=== PATIENT | female | born 1970 | race Caucasian/White ===

== ENCOUNTER 2018-10-27 13:40 | Inpatient (IN) | payer MEDICARE ==
[~2018-10-27] VITALS: Ht 175.3 cm; Wt 144.2 kg
--- NOTE | ~2018-10-27 | MORECARE ---
CASE MANAGEMENT DISCHARGE SUMMARY PATIENT: NILS NICHOLS UNIT: [id number] ADM DATE: 10/27/18 AGE: 48 : 74 SEX: F ROOM/BED: D.1206 AUTHOR: ELSYDOC PHYSICIAN: REFERRING PHYSICIAN: KELTON CISNEROS MD DATE OF SERVICE: 10/27/18 Discharge Plan Patient Name: NILS NICHOLS Facility: [facility] : 1970 Planned Disposition: Home Anticipated Discharge Date: Discharge Date: Expected LOS: Initial Reviewer: [email or web address] Initial Review Date: 10/27/2018 Generated: 10/27/18 10:14 pm Comments DCP- Discharge Planning Updated by [email or web address]: Aileen Wilsl on 10/27/18 8:[address] Patient Name: NILS NICHOLS Admission Status: Elective Accout number: [id number] Admission Date: 10-27-2018 : 1970 Admission Diagnosis: Attending: KELTON CISNEROS Current LOS: 1 Anticipated DC Date: Planned Disposition: Home Primary Insurance: MEDICARE A & B Discharge Planning Comments: CM met with patient and spouse at bedside after obtaining verbal consent. Patient states she plans on returning home after discharge with her . Patient denies any discharge needs at this time. CM will continue to follow and assist as needed for discharge planning / needs. Ground Host/Hostess: Aileen Wills DCPIA - Discharge Planning Initial Assessment Updated by [email or web address]: Aileen Wills on 10/27/18 9:12 pm * Is the patient Alert and Oriented? Yes * How many steps to enter\exit or inside your home? * PCP Yaa Hinson * [facility] * Preadmission Environment Home with Family * ADLs Independent * Equipment Cane * List name and contact numbers for known caregivers / representatives who currently or will assist patient after discharge: Johnny Nichols [phone] * Verbal permission to speak to the caregivers and representatives has been obtained from the patient. Yes * Community resources currently utilized None * Additional services required to return to the preadmission environment? Yes * Can the patient safely return to the preadmission environment? No * Has this patient been hospitalized within the prior 30 days at any hospital? Yes Patient Name: NILS NICHOLS Page [id number] at 2113 All edits/amendments must be made on the electronic document DICTATION DATE: 10/27/182113 HEADER SETUP OPERATOR: AIDAN 10/27/182113 RPT#: [id number] DC DATE: STATUS: ADM IN [facility] [address] [place] [address] END OF REPORT
--- NOTE | ~2018-10-27 | MORECARE ---
CASE MANAGEMENT DISCHARGE SUMMARY PATIENT: NILS NICHOLS UNIT: [id number] ADM DATE: 10/27/18 AGE: 48 : 74 SEX: F ROOM/BED: D.1206 AUTHOR: ELSYDOC PHYSICIAN: REFERRING PHYSICIAN: KELTON CISNEROS MD DATE OF SERVICE: 10/28/18 Discharge Plan Patient Name: NILS NICHOLS Facility: [facility]:[place] : 1970 Planned Disposition: Home Anticipated Discharge Date: Discharge Date: 10/28/2018 Expected LOS: Initial Reviewer: [email or web address] Initial Review Date: 10/27/2018 Generated: 10/28/18 10:11 pm Comments DCP- Discharge Planning Updated by [email or web address]: Aileen Wills on 10/27/18 8:[address] Patient Name: NILS NICHOLS Admission Status: Elective Accout number: [id number] Admission Date: 10-27-2018 : 1970 Admission Diagnosis: Attending: KELTON CISNEROS Current LOS: 1 Anticipated DC Date: Planned Disposition: Home Primary Insurance: MEDICARE A & B Discharge Planning Comments: CM met with patient and spouse at bedside after obtaining verbal consent. Patient states she plans on returning home after discharge with her . Patient denies any discharge needs at this time. CM will continue to follow and assist as needed for discharge planning / needs. Water Quality Analyst: Aileen Wills DCPIA - Discharge Planning Initial Assessment Updated by [email or web address]: Aileen Wills on 10/27/18 9:12 pm * Is the patient Alert and Oriented? Yes * How many steps to enter\exit or inside your home? * PCP Yaa Hinson * [facility] * Preadmission Environment Home with Family * ADLs Independent * Equipment Cane * List name and contact numbers for known caregivers / representatives who currently or will assist patient after discharge: Johnny Nichols [phone] * Verbal permission to speak to the caregivers and representatives has been obtained from the patient. Yes * Community resources currently utilized None * Additional services required to return to the preadmission environment? Yes * Can the patient safely return to the preadmission environment? No * Has this patient been hospitalized within the prior 30 days at any hospital? Yes Last DP export: 10/27/18 8:14 Patient Name: NILS NICHOLS Page 46405 at 2110 All edits/amendments must be made on the electronic document DICTATION DATE: 10/28/182110 SEWING MACHINE ADJUSTER: AIDAN 10/28/182110 RPT#: [id number] DC DATE:10/28/18 STATUS: DIS IN [facility] [address] [place] [address] END OF REPORT
[2018-10-27 15:19] VITALS: BP 108/61; BMI 47.0
[2018-10-27 16:00] LABS: HEMATOCRIT 40.5 % (36.0-48.0); HEMOGLOBIN 14.6 g/dL (12-16); MCH 31.5 pg (26.0-34.0); MCV 87.3 fL (80.0-100.0); MEAN PLATELET VOLUME 10.8 fL (7.4-10.4); PLATELET COUNT 358 10x3/uL (130-400); RBC 4.64 10x6/uL (4.00-5.40); RDW 14.1 % (11.5-14.5); WBC 23.6 10x3/uL (4.8-10.8)
[2018-10-27 16:06] LABS: ALBUMIN 3.2 g/dL (3.4-5.0); ALKALINE PHOSPHATASE 93 U/L (46-116); ALT (SGPT) 39 U/L (10-68); BILIRUBIN - TOTAL 0.61 mg/dL (0.2-1.3); CALC OSMOLALITY 273 mosm/kg (275-300); CALCIUM 9.2 mg/dL (8.5-10.1); CARBON DIOXIDE 27.5 mmol/L (21.0-32.0); CHLORIDE - SERUM 96 mmol/L (98-107); CREATININE - SERUM 0.8 mg/dL (0.6-1.3); GLUCOSE 145 mg/dL (74-106); POTASSIUM - SERUM 3.8 mmol/L (3.5-5.1); PROTEIN - SERUM 7.6 g/dL (6.4-8.2); SODIUM 135 mmol/L (136-145); UREA NITROGEN 15 mg/dL (7-18); eGFR NON AFRICAN AMERICAN 82 mL/min (90-120)
[2018-10-27 17:11] LABS: EOSINOPHILS 1 % (0-7); LYMPHOCYTES 15 % (15-50); MONOCYTES 3 % (2-11); NEUTROPHILS 81 % (40-80); PLATELET ESTIMATE NORMAL
[2018-10-27 17:37] VITALS: BP 108/61
[2018-10-27 19:00] VITALS: BP 125/63
[2018-10-27 23:46] VITALS: BP 123/62
[2018-10-28 04:13] VITALS: BP 114/52
[2018-10-28 06:59] LABS: BASOPHILS 0.4 % (0-2); EOSINOPHILS 1.4 % (0-7); HEMATOCRIT 39.2 % (36.0-48.0); HEMOGLOBIN 13.8 g/dL (12-16); IMMATURE GRANULOCYTES 0.9 % (0-5); LYMPHOCYTES 17.1 % (15-50); MCH 31.1 pg (26.0-34.0); MCHC 35.2 g/dL (31.0-37.0); MCV 88.3 fL (80.0-100.0); MEAN PLATELET VOLUME 10.7 fL (7.4-10.4); MONOCYTES 6.2 % (2-11); PLATELET COUNT 341 10x3/uL (130-400); RBC 4.44 10x6/uL (4.00-5.40); RDW 14.3 % (11.5-14.5)
[2018-10-28 07:16] LABS: ALBUMIN 3.2 g/dL (3.4-5.0); ALKALINE PHOSPHATASE 89 U/L (46-116); ALT (SGPT) 43 U/L (10-68); BILIRUBIN - TOTAL 0.75 mg/dL (0.2-1.3); CALC OSMOLALITY 281 mosm/kg (275-300); CALCIUM 8.5 mg/dL (8.5-10.1); CARBON DIOXIDE 26.7 mmol/L (21.0-32.0); CHLORIDE - SERUM 101 mmol/L (98-107); CREATININE - SERUM 0.7 mg/dL (0.6-1.3); GLUCOSE 179 mg/dL (74-106); POTASSIUM - SERUM 4.5 mmol/L (3.5-5.1); PROTEIN - SERUM 6.9 g/dL (6.4-8.2); SODIUM 139 mmol/L (136-145); UREA NITROGEN 13 mg/dL (7-18); eGFR NON AFRICAN AMERICAN > 90 mL/min (90-120)
[2018-10-28 07:34] VITALS: BP 109/55
[2018-10-28 11:17] VITALS: Ht 175.3 cm; Wt 144.2 kg
[2018-10-28 11:18] VITALS: BP 115/61
[2018-10-28] MEDS ORDERED: LEVAQUIN750 MG PO (17:12)
[2018-10-28] MEDS ORDERED: PROBIOTIC1 EAC1 PO (17:13)
== END 2018-10-28 18:40 | disposition home or self-care (01) | DRG 392 ==
LOC: D.M3 13:40
PROVIDERS: Emergency Medicine
DX: R10.9 Unspecified abdominal pain (principal); D72.829 Elevated white blood cell count, unspecified; E11.9 Type 2 diabetes mellitus without complications; J45.909 Unspecified asthma, uncomplicated; G89.29 Other chronic pain; M54.9 Dorsalgia, unspecified; K21.9 Gastro-esophageal reflux disease without esophagitis; F43.10 Post-traumatic stress disorder, unspecified

== ENCOUNTER → 2018-12-21 10:12 | Outpatient (CLI) | payer MEDICARE ==
[2018-10-28 11:17] VITALS: BMI 46.9
[~2018-12-21 10:12] MED LIST: LEVAQUIN750 MG PO; PROBIOTIC1 EAC1 PO
== END | disposition home or self-care (01) ==
LOC: D.MRI 10:12
DX: M25.561 Pain in right knee (principal)

== ENCOUNTER 2019-01-14 07:09 | Outpatient (CLI) | payer MEDICARE ==
[~2019-01-14] VITALS: Ht 175.3 cm; Wt 141.1 kg
[2019-01-14 07:43] LABS: BASOPHILS 0.3 % (0-2); EOSINOPHILS 1.9 % (0-7); HEMATOCRIT 40.5 % (36.0-48.0); IMMATURE GRANULOCYTES 0.8 % (0-5); LYMPHOCYTES 25.8 % (15-50); MCH 29.7 pg (26.0-34.0); MCHC 34.6 g/dL (31.0-37.0); MEAN PLATELET VOLUME 10.1 fL (7.4-10.4); MONOCYTES 6.4 % (2-11); NEUTROPHILS 64.8 % (40-80); PLATELET COUNT 339 10x3/uL (130-400); RBC 4.71 10x6/uL (4.00-5.40); RDW 15.5 % (11.5-14.5); WBC 10.5 10x3/uL (4.8-10.8)
[2019-01-14 07:53] LABS: APTT 29.5 SECONDS (22.8-39.4); INR 1.11 (0.85-1.17); PROTIME 13.8 SECONDS (11.6-15.0)
[2019-01-14 07:55] LABS: ANION GAP 13.7 mmol/L (8-16); CREATININE - SERUM 0.9 mg/dL (0.6-1.3); POTASSIUM - SERUM 4.7 mmol/L (3.5-5.1)
[2019-01-14] MEDS ORDERED: MINIPRESS 5 MG C5 MG PO (08:19)
[2019-01-14] MEDS ORDERED: CYMBALTA30 MG PO (08:20)
[2019-01-14] MEDS ORDERED: GEODON60 MG PO (08:21)
[2019-01-14] MEDS ORDERED: GLUCOPHAGE500 MG PO (08:21)
[2019-01-14] MEDS ORDERED: LISINOPRIL-HCT1 EAC4 PO (08:21)
[2019-01-14] MEDS ORDERED: NEURONTIN600 MG PO (08:22)
[2019-01-14] MEDS ORDERED: ADVAIR HFA 230-12 GM INH (08:22)
[2019-01-14] MEDS ORDERED: CARDURA1 MG PO (08:23)
[2019-01-14] MEDS ORDERED: LANTUS INSULIN10 ML SC (08:24)
[2019-01-14] MEDS ORDERED: CELEBREX50 MG PO (08:24)
[2019-01-14] MEDS ORDERED: INVOKANA300 MG PO (08:24)
[2019-01-14] MEDS ORDERED: OMEPRAZOLE40 MG PO (08:25)
[2019-01-14] MEDS ORDERED: LOPRESSOR25 MG PO (08:26)
[2019-01-14] MEDS ORDERED: CRESTOR5 MG PO (08:26)
[2019-01-14] MEDS ORDERED: NOVOLIN 70/30 110 ML SQ (08:27)
[2019-01-14 08:29] VITALS: BP 109/66; Ht 175.3 cm; Wt 141.1 kg
--- NOTE | 2019-01-14 12:03 | NUR ---
REC'D FROM SPECIALS. FAMILY AT BEDSIDE. DRESSING CDI TO BX SITE. FL TRAY BROUGHT TO PT.
--- NOTE | 2019-01-14 12:35 | NUR ---
TOLERATED DIET. CALLED Bulmaro BEAN RN REGARDING DC ORDERS. DRESSING CDI. FAMILY AT BEDSIDE.
--- NOTE | 2019-01-14 13:30 | NUR ---
IV DC'D WITH CATHETER INTACT.
--- NOTE | 2019-01-14 13:45 | NUR ---
WRITTEN AND VERBAL DC INST. GIVEN TO PT. VERBALIZED UNDERSTANDING.
--- NOTE | 2019-01-14 14:00 | NUR ---
DC'D HOME WITH FAMILY VIA PRIVATE VEHICLE. TAKEN TO VEHICLE VIA WC. STABLE AT TIME OF DC.
== END 2019-01-14 14:00 | disposition home or self-care (01) ==
LOC: D.SP 07:09 → D.CT 11:00 → D.SP 14:00
PROVIDERS: Specialist
DX: D64.9 Anemia, unspecified (principal); Z01.812 Encounter for preprocedural laboratory examination

== ENCOUNTER 2019-02-04 05:00 | Day surgery (SDC) | payer MEDICARE ==
[2019-02-03 08:42] LABS: HEMATOCRIT 39.6 % (36.0-48.0); HEMOGLOBIN 13.8 g/dL (12-16); MCH 29.9 pg (26.0-34.0); MCHC 34.8 g/dL (31.0-37.0); MCV 85.7 fL (80.0-100.0); MEAN PLATELET VOLUME 10.1 fL (7.4-10.4); RBC 4.62 10x6/uL (4.00-5.40); RDW 15.1 % (11.5-14.5); WBC 11.1 10x3/uL (4.8-10.8)
[2019-02-03 08:47] LABS: ANION GAP 15.8 mmol/L (8-16); CALCIUM 8.9 mg/dL (8.5-10.1); CARBON DIOXIDE 25.7 mmol/L (21.0-32.0); CREATININE - SERUM 0.9 mg/dL (0.6-1.3); POTASSIUM - SERUM 4.5 mmol/L (3.5-5.1)
[~2019-02-04] VITALS: Ht 403.9 cm; Wt 145.1 kg
[~2019-02-04 05:00] MED LIST changes: +ADVAIR HFA 230-12 GM INH; +CARDURA1 MG PO; +CELEBREX50 MG PO; +CRESTOR5 MG PO; +CYMBALTA30 MG PO; +GEODON60 MG PO; +GLUCOPHAGE500 MG PO; +INVOKANA300 MG PO; +LANTUS INSULIN10 ML SC; +LISINOPRIL-HCT1 EAC4 PO; +LOPRESSOR25 MG PO; +MINIPRESS 5 MG C5 MG PO; +NEURONTIN600 MG PO; +NOVOLIN 70/30 110 ML SQ; +OMEPRAZOLE40 MG PO; +[UNRECOGNIZED DRUG - OTHER]
[2019-02-04 06:05] VITALS: BP 117/74; Ht 403.9 cm; Wt 145.1 kg
[2019-02-04] MEDS ORDERED: PERCOCET 7.5/321 TAB PO (09:21)
--- NOTE | 2019-02-04 11:24 | NUR ---
1123 IV DC'D. NO BLEEDING AT SITE. BANDAID APPLIED.
--- NOTE | 2019-02-04 16:32 | OP ---
PATIENT NAME: NILS NICHOLS MEDICAL RECORD: [id number] :[birth year] LOCATION:[facility] AD[facility]ION DATE: SURGEON: LEE WEEKS DO DATE OF OPERATION: 02/04/2019 PROCEDURE PERFORMED: Left knee arthroscopy, partial medial and partial lateral meniscectomy. PREOPERATIVE DIAGNOSIS: Left knee medial meniscal tear. 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 INDICATIONS: Ms. Nichols is a 48-year-old female who has had popping, catching, and locking of her knee for some time. She had an MRI done, which demonstrated a medial meniscal tear and mild tricompartmental arthritis. This has been going on for a long time and she wanted something done. She agreed to a knee scope. I informed her that I may not be able to trim out the meniscus, but I will not be able to do anything about the arthritis. She is aware of that and that this may not get better. We will help with the meniscal symptoms of popping, catching, but will not help with the pain as much. She is aware of that and signed the consent, is aware of the risks of blood clots, bleeding, damage to nerves and vessels, need for further surgery. SURGEON: Lee Weeks DO DESCRIPTION OF PROCEDURE: The patient was taken to the operative suite, laid in supine position. Left lower extremity was prepped and draped in sterile fashion. The patient was given 2 grams of Ancef preoperatively. A timeout was performed and everyone was in agreement with the correct side, site, patient and procedure. The knee was then flexed down and the lateral portal was started with an 11-blade scalpel. Trocar was then entered in the knee up to the suprapatellar pouch. Inspection was done. There were no loose bodies seen there. The patella did not appear to have any chondromalacia. The lateral gutter was then inspected. No loose body was seen in that. Medial gutter was same. The knee was then brought from extension to flexion and the medial femoral condyle was noted to have a large defect approximately a 3 x 4 cm with loose cartilage. A shaver was then brought in after the medial portal was established with 15-blade spinal needle and an 11-blade scalpel. A shaver was brought in and abrasion chondroplasty was done to take off the cartilage. It was loose. There was a small tear in the anterior horn of medial meniscus as well and this was chewed up with the shaver. The probe was then brought in. The posterior horn of the meniscus where the tear was seen on the MRI was seen, but the meniscus was not unstable with the probe. The small tear that was seen at that point was then trimmed out with a biter and then smoothed out with a shaver. The camera was then switched to see the ACL. The probe was used to probe, it was very taut and then the probe was parked in the notch and the knee was [id number]. The lateral compartment was then entered. The chondromalacia of the lateral tibial plateau was noted at grade III. Shaver was brought in to trim that out. Any loose cartilage was removed and then a small tear in the lateral meniscus was seen. It was trimmed out with a shaver. The meniscus was probed and did not appear to be unstable in the lateral meniscus. The knee was then brought into an extension and the suprapatellar pouch was inspected again, nothing was seen in it and the patella seemed to track very OPERATIVE REPORT [id number] NICHOLSNILS well in the trochlea. There was some slight chondromalacia of the trochlea, but nothing severe, grade I. The water was then turned off, suction was turned on. Excess fluid was removed. The portal sites were then closed with 3-0 Monocryl in inverted interrupted fashion. Steri-Strips, Adaptic, 4 x 4's, ABD, Webril, and Alcides wrap was then placed on the knee. A AHSLEY hose stockinette was placed up to the knee. The patient was awakened and taken to recovery in stable condition. BLOOD LOSS: Minimal. COMPLICATIONS: None. TRANSINT:[id number] Voice Confirmation ID: [id number] DOCUMENT ID: [id number] LEE WEEKS DO at 1632 CC: [id number] DICTATION DATE: 02/04/19928 INTERCELL CONNECTOR PLACER: 02/04/19 1007 [facility] 02/04/19 [place] [id number] [place] [address]
== END 2019-02-04 11:30 | disposition home or self-care (01) ==
LOC: D.OPS 05:00 → D.PAN 07:30 → D.OPS 07:30
PROVIDERS: Anesthesiology; ATTEND Orthopaedic Surgery
DX: S83.242A Other tear of medial meniscus, current injury, left knee, initial encounter (principal); S83.282A Other tear of lateral meniscus, current injury, left knee, initial encounter; M94.262 Chondromalacia, left knee; Z01.812 Encounter for preprocedural laboratory examination

== ENCOUNTER → 2019-09-15 08:13 | Outpatient (CLI) | payer MEDICARE ==
[~2019-09-15 08:13] MED LIST changes: +PERCOCET 7.5/321 TAB PO
== END | disposition home or self-care (01) ==
LOC: D.HCCARDIO 08:13
PROVIDERS: ATTEND Internal Medicine Cardiovascular Disease
DX: I20.9 Angina pectoris, unspecified (principal)

== ENCOUNTER 2019-12-20 06:08 | Emergency (ER) | payer MEDICARE ==
[~2019-12-20] VITALS: Ht 175.3 cm; Wt 145.5 kg
[~2019-12-20 06:08] MED LIST changes: -LANTUS INSULIN10 ML SC; +LANTUS SOL100 UNIT/1
[2019-12-20 06:16] VITALS: Ht 175.3 cm; Wt 145.5 kg
[2019-12-20 06:45] LABS: BASOPHILS 0.1 % (0-2); EOSINOPHILS 0.6 % (0-7); HEMATOCRIT 24.6 % (36.0-48.0); IMMATURE GRANULOCYTES 0.4 % (0-5); LYMPHOCYTES 17.6 % (15-50); MCH 21.8 pg (26.0-34.0); MCHC 30.1 g/dL (31.0-37.0); MCV 72.6 fL (80.0-100.0); MEAN PLATELET VOLUME 9.4 fL (7.4-10.4); MONOCYTES 6.7 % (2-11); NEUTROPHILS 74.6 % (40-80); RBC 3.39 10x6/uL (4.00-5.40); RDW 18.2 % (11.5-14.5); WBC 16.2 10x3/uL (4.8-10.8)
[2019-12-20 06:51] LABS: HEMOGLOBIN 7.4 g/dL (12-16); PLATELET COUNT 448 10x3/uL (130-400)
[2019-12-20 07:00] LABS: ANION GAP 17.2 mmol/L (8-16); CALCIUM 8.2 mg/dL (8.5-10.1); CARBON DIOXIDE 24.6 mmol/L (21.0-32.0); POTASSIUM - SERUM 3.8 mmol/L (3.5-5.1)
[2019-12-20 07:02] LABS: HCG SERUM NEGATIVE (NEGATIVE)
[2019-12-20 07:07] LABS: ALBUMIN 3.3 g/dL (3.4-5.0); BILIRUBIN - TOTAL 0.42 mg/dL (0.2-1.3); PROTEIN - SERUM 7.4 g/dL (6.4-8.2)
[2019-12-20 08:35] LABS: APPEARANCE CLEAR (CLEAR); BILIRUBIN NEGATIVE (NEGATIVE); COLOR YELLOW (YELLOW); GLUCOSE NEGATIVE (NEGATIVE); KETONE MODERATE mg/dL (NEGATIVE); NITRITE NEGATIVE (NEGATIVE); PROTEIN NEGATIVE (NEGATIVE); UROBILINOGEN NORMAL (NORMAL)
[2019-12-20 08:41] LABS: RED CELLS - URINE 0-5 /hpf (0-5); WHITE CELLS - URINE 0-5 /hpf (NEGATIVE)
[2019-12-20 08:43] LABS: BACTERIA MODERATE /hpf (NEGATIVE); MUCUS <1+ /lpf (NONE SEEN)
[2019-12-20 11:51] VITALS: BP 137/72
== END 2019-12-20 12:01 | disposition home or self-care (01) ==
LOC: D.ER 06:08
PROVIDERS: Emergency Medicine
DX: N93.9 Abnormal uterine and vaginal bleeding, unspecified (principal); D62 Acute posthemorrhagic anemia; R10.2 Pelvic and perineal pain; E11.9 Type 2 diabetes mellitus without complications; Z79.84 Long term (current) use of oral hypoglycemic drugs; I10 Essential (primary) hypertension; I49.9 Cardiac arrhythmia, unspecified; M54.9 Dorsalgia, unspecified; K21.9 Gastro-esophageal reflux disease without esophagitis

== ENCOUNTER 2021-01-23 05:49 | Day surgery (SDC) | payer MEDICARE, OTHER ==
[~2021-01-23] VITALS: Ht 175.3 cm; Wt 145.1 kg
[~2021-01-23 05:49] MED LIST changes: +APIDRA SOL100 UNIT/1 SQ; +CRESTOR10 MG PO; -CRESTOR5 MG PO; +GLUCOTROL 5 MG T5 MG PO; +HYDROCODON-ACE1 EAC7 PO; +KEFLEX500 MG PO; -LANTUS SOL100 UNIT/1; +LANTUS SOLOSTAR PE; -LOPRESSOR25 MG PO; +METOPROLOL TART25 MG PO; +REQUIP5 MG PO
[2021-01-23 06:18] LABS: BASOPHILS 0.4 % (0-2); EOSINOPHILS 1.7 % (0-7); HEMATOCRIT 41.5 % (36.0-48.0); HEMOGLOBIN 14.2 g/dL (12-16); IMMATURE GRANULOCYTES 0.5 % (0-5); LYMPHOCYTE ABS# 2.67 10x3/uL (1.18-3.74); LYMPHOCYTES 19.2 % (15-50); MCH 29.8 pg (26.0-34.0); MCHC 34.2 g/dL (31.0-37.0); MEAN PLATELET VOLUME 9.8 fL (7.4-10.4); MONOCYTES 5.7 % (2-11); NEUTROPHILS 72.5 % (40-80); PLATELET COUNT 384 10x3/uL (130-400); RBC 4.77 10x6/uL (4.00-5.40); RDW 15.4 % (11.5-14.5); WBC 13.9 10x3/uL (4.8-10.8)
[2021-01-23 06:40] LABS: ALBUMIN 3.4 g/dL (3.4-5.0); ALKALINE PHOSPHATASE 74 U/L (30-120); ALT (SGPT) 35 U/L (10-68); BILIRUBIN - TOTAL 0.61 mg/dL (0.2-1.3); CALC OSMOLALITY 274 mosm/kg (275-300); CALCIUM 9.1 mg/dL (8.5-10.1); CARBON DIOXIDE 30.4 mmol/L (21.0-32.0); CHLORIDE - SERUM 99 mmol/L (98-107); CREATININE - SERUM 0.8 mg/dL (0.6-1.3); GLUCOSE 139 mg/dL (74-106); POTASSIUM - SERUM 4.1 mmol/L (3.5-5.1); PROTEIN - SERUM 7.5 g/dL (6.4-8.2); SODIUM 137 mmol/L (136-145); UREA NITROGEN 10 mg/dL (7-18); eGFR NON AFRICAN AMERICAN 81 mL/min (90-120)
[2021-01-23 07:25] VITALS: Ht 175.3 cm; Wt 145.1 kg
[2021-01-23] MEDS ORDERED: MYSOLINE 50 MG50 MG PO (07:33)
[2021-01-23] MEDS ORDERED: HYDROXYCHLOROQ200 MG PO (07:34)
[2021-01-23] MEDS ORDERED: LEVOXYL75 MCG PO (07:36)
[2021-01-23] MEDS ORDERED: FOLIC ACID1 MG PO (07:37)
[2021-01-23] MEDS ORDERED: VITAMIN D325 MC1 PO (07:41)
--- NOTE | 2021-01-23 09:40 | NUR ---
DISCHARGE INSTRUCTIONS REVIEWED WITH PATIENT AND COPY PROVIDED ALONG WITH ORIGINAL RX FOR PROTONIX. ALSO PROVIDED LIST OF NSAIDS TO AVOID. PT VOICED UNDERSTANDING OF ALL. IV DC'D WITH CATH TIP INTACT. PT UP GETTING DRESSED FOR DISCHARGE.
--- NOTE | 2021-01-23 09:47 | NUR ---
DISCHARGED VIA WC, ACCOMPANIED BY THIS NURSE, TO POV WITH SPOUSE DRIVING. ALL BELONGINGS AND DC PACKET WITH PT. NO C/O VOICED.
--- NOTE | 2021-01-23 20:41 | OP ---
PATIENT NAME: NILS MCCORMICK MEDICAL RECORD: [id number] :74 LOCATION:[facility] ADMISSION DATE: SURGEON: HARMONY COPE MD DATE OF OPERATION: 01/23/2021 PROCEDURE: Upper endoscopy. PREOPERATIVE DIAGNOSES: Abdominal pain, nausea, vomiting. MEDICATION: Propofol per anesthesia. DESCRIPTION OF PROCEDURE: The patient was placed in a comfortable position. The endoscope was advanced through the mouth and advanced to the second part of the duodenum. The entire examined esophagus was normal. In the gastric body was mild erythema consistent with gastritis. Random gastric biopsies were taken. There was also a small antral polyp. This was removed with cold biopsy forceps. The duodenum was normal. Small bowel biopsies were taken. The patient tolerated the procedure well. FINAL DIAGNOSES: Normal esophagus, mild gastritis, gastric polyp. Duodenum normal. PLAN: Check histology results. Advance diet. Return to GI office. Continue proton pump inhibitor, which she is already on and this is on her home medications. TRANSINT:[id number] Voice Confirmation ID: [id number] DOCUMENT ID: [id number] HARMONY COPE MD at 2041 CC: [id number] DICTATION DATE: 01/23/21 09 COMPUTER ENGINEER: 01/23/21 1553 [facility] 01/23/21 [facility] [address] [place] [address]
== END 2021-01-23 09:47 | disposition home or self-care (01) ==
LOC: D.OPS 05:49
PROVIDERS: Anesthesiology; ATTEND Internal Medicine Gastroenterology
DX: R10.9 Unspecified abdominal pain (principal); R11.2 Nausea with vomiting, unspecified; K31.7 Polyp of stomach and duodenum; K29.70 Gastritis, unspecified, without bleeding; R10.817 Generalized abdominal tenderness; K21.9 Gastro-esophageal reflux disease without esophagitis; R63.4 Abnormal weight loss

== ENCOUNTER 2021-02-18 10:03 | Emergency (ER) | payer MEDICARE, OTHER ==
[~2021-02-18] VITALS: Ht 175.3 cm; Wt 145.5 kg
[~2021-02-18 10:03] MED LIST changes: +FOLIC ACID1 MG PO; +HYDROXYCHLOROQ200 MG PO; +LEVOXYL75 MCG PO; +MYSOLINE 50 MG50 MG PO; +VITAMIN D325 MC1 PO
[2021-02-18 10:07] VITALS: Ht 175.3 cm; Wt 145.5 kg
[2021-02-18 10:51] LABS: BASOPHILS 0.5 % (0-2); EOSINOPHILS 1.5 % (0-7); HEMATOCRIT 43.5 % (36.0-48.0); HEMOGLOBIN 15.2 g/dL (12-16); IMMATURE GRANULOCYTES 0.4 % (0-5); LYMPHOCYTE ABS# 3.37 10x3/uL (1.18-3.74); LYMPHOCYTES 24.8 % (15-50); MCH 29.8 pg (26.0-34.0); MCHC 34.9 g/dL (31.0-37.0); MCV 85.3 fL (80.0-100.0); MONOCYTES 7.9 % (2-11); NEUTROPHIL ABS# 8.84 10x3/uL (1.56-6.13); NEUTROPHILS 64.9 % (40-80); PLATELET COUNT 412 10x3/uL (130-400); RDW 15.4 % (11.5-14.5); WBC 13.6 10x3/uL (4.8-10.8)
[2021-02-18 11:03] LABS: ANION GAP 16.9 mmol/L (8-16); CALCIUM 9.1 mg/dL (8.5-10.1); CREATININE - SERUM 0.9 mg/dL (0.6-1.3); POTASSIUM - SERUM 3.9 mmol/L (3.5-5.1)
[2021-02-18 11:09] LABS: ALBUMIN 3.8 g/dL (3.4-5.0); BILIRUBIN - TOTAL 0.83 mg/dL (0.2-1.3); PROTEIN - SERUM 7.9 g/dL (6.4-8.2)
[2021-02-18 13:41] LABS: BILIRUBIN NEGATIVE (NEGATIVE); KETONE NEGATIVE (NEGATIVE); NITRITE NEGATIVE (NEGATIVE); UROBILINOGEN NORMAL mg/dL (< 2); WHITE CELLS - URINE 0-5 HPF (0-4)
[2021-02-18 13:42] LABS: BACTERIA FEW HPF (NONE SEEN); SQUAMOUS EPITHELIAL 0-5 HPF (0-4)
[2021-02-18] MEDS ORDERED: REGLAN5 MG PO (13:49)
[2021-02-18 14:20] VITALS: BP 123/64
== END 2021-02-18 14:20 | disposition home or self-care (01) ==
LOC: D.ER 10:03
PROVIDERS: Family Medicine
DX: R11.2 Nausea with vomiting, unspecified (principal); E11.43 Type 2 diabetes mellitus with diabetic autonomic (poly)neuropathy; K31.84 Gastroparesis; Z79.84 Long term (current) use of oral hypoglycemic drugs; I10 Essential (primary) hypertension; J45.909 Unspecified asthma, uncomplicated; K21.9 Gastro-esophageal reflux disease without esophagitis

== ENCOUNTER 2021-02-25 06:04 | Day surgery (SDC) | payer MEDICARE, OTHER ==
[~2021-02-25] VITALS: Ht 175.3 cm; Wt 149.5 kg
[~2021-02-25 06:04] MED LIST changes: +BASAGLAR K100 UNIT/1 SC; +METHOTREXATE2.5 MG PO; +PROTONIX40 MG PO; +REGLAN5 MG PO
[2021-02-25 06:40] LABS: ALBUMIN 3.9 g/dL (3.4-5.0); ANION GAP 15.4 mmol/L (8-16); BILIRUBIN - TOTAL 0.96 mg/dL (0.2-1.3); CALCIUM 8.8 mg/dL (8.5-10.1); CARBON DIOXIDE 28.1 mmol/L (21.0-32.0); POTASSIUM - SERUM 3.5 mmol/L (3.5-5.1); PROTEIN - SERUM 7.9 g/dL (6.4-8.2)
[2021-02-25] MEDS ORDERED: METHOTREXATE (06:53)
[2021-02-25 07:02] VITALS: BP 142/85; Ht 175.3 cm; Wt 149.5 kg
[2021-02-25 07:11] LABS: BASOPHILS 0.7 % (0-2); EOSINOPHILS 2.4 % (0-7); HEMOGLOBIN 14.3 g/dL (12-16); IMMATURE GRANULOCYTES 0.5 % (0-5); LYMPHOCYTE ABS# 2.79 10x3/uL (1.18-3.74); LYMPHOCYTES 25.5 % (15-50); MCH 29.5 pg (26.0-34.0); MCHC 34.9 g/dL (31.0-37.0); MCV 84.7 fL (80.0-100.0); MEAN PLATELET VOLUME 10.5 fL (7.4-10.4); MONOCYTES 8.1 % (2-11); NEUTROPHIL ABS# 6.87 10x3/uL (1.56-6.13); NEUTROPHILS 62.8 % (40-80); PLATELET COUNT 423 10x3/uL (130-400); RBC 4.84 10x6/uL (4.00-5.40); RDW 14.8 % (11.5-14.5); WBC 10.9 10x3/uL (4.8-10.8)
--- NOTE | 2021-02-25 08:44 | NUR ---
DC INSTRUCTIONS GIVEN TO PT/FAMILY. STATE UNDERSTANDING. DC'D IV CATH FULLY INTACT. WILL DC SHORTLY.
--- NOTE | 2021-02-25 08:57 | NUR ---
PT LEFT UNIT VIA AT 0822
--- NOTE | 2021-02-25 16:37 | OP ---
PATIENT NAME: NILS MCCORMICK MEDICAL RECORD: [id number] :74 LOCATION:[facility] ADMISSION DATE: SURGEON: HARMONY COPE MD DATE OF OPERATION: 02/25/2021 PREOPERATIVE DIAGNOSES: History of polyps, abdominal pain, unintentional weight loss. MEDICATIONS Propofol per anesthesia. DESCRIPTION OF PROCEDURE: The patient was placed in the left lateral position and made comfortable. The colonoscope was inserted through the rectum and advanced to the cecum, identified by the ileocecal valve. The quality of the prep was good. The entire examined mucosa was normal. The patient tolerated the procedure well. There were no immediate complications. FINAL DIAGNOSIS: Normal colonoscopy. PLAN: Advance diet. Return to GI office. Given history of polyps, recommend repeat colonoscopy in 3 to 5 years. TRANSINT:[id number] Voice Confirmation ID: [id number] DOCUMENT ID: [id number] HARMONY COPE MD at 1637 CC: [id number] DICTATION DATE: 02/25/21 08 ASSISTANT BASKETBALL COACH: 02/25/21 1441 [facility] 02/25/21 [facility] [address] [place] [address]
== END 2021-02-25 08:54 | disposition home or self-care (01) ==
LOC: D.OPS 06:04
PROVIDERS: Anesthesiology; ATTEND Internal Medicine Gastroenterology
DX: R10.9 Unspecified abdominal pain (principal); Z86.010 Personal history of colon polyps; R63.4 Abnormal weight loss; R11.2 Nausea with vomiting, unspecified; K21.9 Gastro-esophageal reflux disease without esophagitis

== ENCOUNTER → 2021-04-12 07:30 | Outpatient (CLI) | payer MEDICARE, OTHER ==
[2021-02-25 07:02] VITALS: BMI 48.7
[~2021-04-12 07:30] MED LIST changes: +METHOTREXATE
== END | disposition home or self-care (01) ==
LOC: D.HCCECHO 07:30
PROVIDERS: ATTEND Internal Medicine Cardiovascular Disease
DX: R07.9 Chest pain, unspecified (principal); R00.2 Palpitations